=== PATIENT | female | born 1945 | race Two or more races ===

== ENCOUNTER 2021-09-02 21:46 | Observation (INO) | payer OTHER ==
[2021-09-02 22:00] VITALS: BMI 22.7
[2021-09-02 22:55] LABS: INR 1.04 (0.83-1.09)
[2021-09-02] MEDS ORDERED: ASPIRIN 81 MG CHEWABLE TABLETS PO ONE (23:45)
[2021-09-02 23:54] LABS: BASO % 0.8 % (0-2.0); EOS % 2.6 % (0-4.5); HEMATOCRIT 37.9 % (32.4-45.2); HEMOGLOBIN 12.8 GM/dL (10.7-15.3); MCH 29.5 pg (25.7-33.7); MCHC 33.7 g/dl (32.0-36.0); MEAN CELL VOLUME 87.7 fl (80-96); MEAN PLT VOLUME 7.7 fl (7.5-11.1); MONO % 8.4 % (3.8-10.2); NEUT % 56.2 % (42.8-82.8); PLATELET COUNT 309 10^3/uL (134-434); RBC 4.33 M/mm3 (3.60-5.2); RDW 12.8 % (11.6-15.6); WHITE BLOOD COUNT 7.3 K/mm3 (4.0-10.0)
[2021-09-03] MEDS ORDERED: ASPIRIN 81 MG CHEWABLE TABLETS ONE (00:07)
[2021-09-03 00:12] LABS: ALBUMIN 3.7 g/dl (3.4-5.0); BLOOD UREA NITROGEN 14.3 mg/dL (7-18)
[2021-09-03 00:15] LABS: CREATININE 0.8 mg/dL (0.55-1.3)
[2021-09-03 00:17] LABS: BILIRUBIN,TOTAL 0.3 mg/dL (0.2-1); TOT PROT 7.9 g/dl (6.4-8.2)
[2021-09-03 01:38] LABS: PLATELET ESTIMATE 321
[2021-09-03] MEDS ORDERED: POLYETHYLENE GLYCOL (HEALTHYLAX) 3350 17 GM PACKET PO PRN (03:19)
[2021-09-03] MEDS ORDERED: ACETAMINOPHEN 325 MG TABLET (FP) PO PRN (03:19)
[2021-09-03 09:50] LABS: BASO % 0.8 % (0-2.0); EOS % 2.9 % (0-4.5); HEMATOCRIT 34.2 % (32.4-45.2); HEMOGLOBIN 11.5 GM/dL (10.7-15.3); LYMPH % 33.6 % (8-40); MCH 29.7 pg (25.7-33.7); MCHC 33.7 g/dl (32.0-36.0); MEAN CELL VOLUME 88.2 fl (80-96); MEAN PLT VOLUME 8.1 fl (7.5-11.1); MONO % 8.7 % (3.8-10.2); PLATELET COUNT 275 10^3/uL (134-434); RBC 3.88 M/mm3 (3.60-5.2); RDW 13.1 % (11.6-15.6); WHITE BLOOD COUNT 5.3 K/mm3 (4.0-10.0)
[2021-09-03] MEDS ORDERED: ENOXAPARIN NA (PORCINE) 40 MG/0.4 ML DISP.SYRIN SQ SCH (10:00)
[2021-09-03 10:24] LABS: CALCIUM 8.8 mg/dL (8.5-10.1)
[2021-09-03 10:25] LABS: BLOOD UREA NITROGEN 15.2 mg/dL (7-18)
[2021-09-03 10:28] LABS: CREATININE 0.6 mg/dL (0.55-1.3)
[2021-09-03 11:08] LABS: ACTIVATED PTT 35.7 SECONDS (25.2-36.5); INR 1.03 (0.83-1.09); PROTHROMBIN TIME (PATIENT) 11.8 SEC (9.7-13.0)
[2021-09-03 14:01] VITALS: BP 153/68; PULSE 77; TEMP 98.7
[2021-09-03] MEDS ORDERED: LISINOPRIL 5 MG TABLET PO ONE (14:46)
== END 2021-09-03 16:14 | disposition home or self-care (01) ==
LOC: FER 21:46 → FM/S 09-03 03:25
PROVIDERS: ADMIT Hospitalist; ATTEND Internal Medicine
PROC: 3E023GC Introduction of Other Therapeutic Substance into Muscle, Percutaneous Approach (ICD-10-PCS; principal; 2021-09-03)
DX: M51.26 Other intervertebral disc displacement, lumbar region (principal); M19.90 Unspecified osteoarthritis, unspecified site; R51.9 Headache, unspecified; R42 Dizziness and giddiness; I51.7 Cardiomegaly
CPT/HCPCS: 36415; 70450-TC; 70553-TC; 71045-TC-FY; 80048; 80053; 80061; 81003; 82550; 83036; 84439; 84484; 85025; 85610; 85730; 93005; 96372; 99285-25; A9579; C9803-CS; G0378; U0003; U0005

== ENCOUNTER 2024-03-12 08:31 | Day surgery (SDC) | payer OTHER ==
[2024-03-12] MEDS ORDERED: TETRACAINE 0.5% OPHTH SOLN 2 ML BOTTLE ONE (09:01)
[2024-03-12] MEDS ORDERED: LIDOCAINE 1% P/F 10 MG/ML VIAL ONE (09:01)
[2024-03-12] MEDS ORDERED: NEO/POLYMYX B SULF/DEXAMETH OPHTHALMIC 5ML BOTTLE ONE (09:01)
[2024-03-12] MEDS ORDERED: CARBACHOL 0.01% INTRA-OCULAR 1.5 ML VIAL ONE (09:01)
[2024-03-12] MEDS ORDERED: BSS (NA/CA/MG/K) BALANCED SALT SOLUTION OPHTH SOLN 15 ML BOTTLE ONE (09:01)
[2024-03-12] MEDS: PHENYLEPHRINE 2.5% OPTHALMIC DROP 2ML BOTTLE ONE (09:05)
[2024-03-12] MEDS: CYCLOPENTOLATE 2% OPHTH SOLN 2 ML BOTTLE ONE (09:05)
[2024-03-12] MEDS: TROPICAMIDE 1% OPHTH SOLN 15 ML BOTTLE ONE (09:05)
[2024-03-12] MEDS: CIPROFLOXACIN 0.3% EYE DROPS 5 ML BOTTLE ONE (09:05)
[2024-03-12 09:23] VITALS: BMI 24.0
[2024-03-12] MEDS ORDERED: MIDAZOLAM HCL 2 MG/2 ML SINGLE DOSE VIAL ONE (10:11)
[2024-03-12 11:03] VITALS: RESP 18; TEMP 97.1
[2024-03-12 11:29] VITALS: BP 128/67; PULSE 75
== END 2024-03-12 11:25 | disposition home or self-care (01) ==
LOC: FASU 08:31
PROVIDERS: ATTEND Ophthalmology
PROC: 08RJ3JZ Replacement of Right Lens with Synthetic Substitute, Percutaneous Approach (ICD-10-PCS; principal; 2024-03-12 10:30)
DX: H26.8 Other specified cataract (principal)
CPT/HCPCS: 66984; V2632

== ENCOUNTER 2024-04-09 08:43 | Day surgery (SDC) | payer OTHER ==
[2024-04-04 16:06] VITALS: BMI 24.0
[2024-04-09] MEDS ORDERED: CARBACHOL 0.01% INTRA-OCULAR 1.5 ML VIAL ONE ×2 (09:22→11:54)
[2024-04-09] MEDS ORDERED: TETRACAINE 0.5% OPHTH SOLN 2 ML BOTTLE ONE (09:22)
[2024-04-09] MEDS ORDERED: BSS (NA/CA/MG/K) BALANCED SALT SOLUTION OPHTH SOLN 15 ML BOTTLE ONE (09:22)
[2024-04-09] MEDS ORDERED: LIDOCAINE 1% P/F 10 MG/ML VIAL ONE (09:22)
[2024-04-09] MEDS ORDERED: NEO/POLYMYX B SULF/DEXAMETH OPHTHALMIC 5ML BOTTLE ONE (09:22)
[2024-04-09] MEDS ORDERED: MIDAZOLAM HCL 2 MG/2 ML SINGLE DOSE VIAL ONE (09:54)
[2024-04-09] MEDS: PHENYLEPHRINE 2.5% OPTHALMIC DROP 2ML BOTTLE ONE (10:55)
[2024-04-09] MEDS: CIPROFLOXACIN 0.3% EYE DROPS 5 ML BOTTLE ONE (10:55)
[2024-04-09] MEDS: CYCLOPENTOLATE 2% OPHTH SOLN 2 ML BOTTLE ONE (10:55)
[2024-04-09] MEDS: TROPICAMIDE 1% OPHTH SOLN 15 ML BOTTLE ONE (10:55)
[2024-04-09 12:41] VITALS: TEMP 97.4
[2024-04-09 13:22] VITALS: BP 163/74; PULSE 76; RESP 16
== END 2024-04-09 13:15 | disposition home or self-care (01) ==
LOC: FASU 08:43
PROVIDERS: ATTEND Ophthalmology
PROC: 08RK3JZ Replacement of Left Lens with Synthetic Substitute, Percutaneous Approach (ICD-10-PCS; principal; 2024-04-09 12:11)
DX: H26.8 Other specified cataract (principal)
CPT/HCPCS: 66984; V2632